=== PATIENT | male | born 1975 | race African-American/Black ===

== ENCOUNTER 2024-09-15 08:56 | Emergency (ER) | payer OTHER ==
[2024-09-15 09:06] VITALS: BP 113/70; PULSE 52; RESP 17; TEMP 98.1; BMI 21.2
[2024-09-15] MEDS ORDERED: DEXAMETHASONE SOD PHOSPHATE 10 MG/1 ML VIAL ONE (09:39)
[2024-09-15] MEDS: DEXAMETHASONE SOD PHOSPHATE 10 MG/1 ML VIAL PO ONE (09:42)
== END 2024-09-15 10:41 | disposition home or self-care (01) ==
LOC: JERFT 08:56
DX: J02.9 Acute pharyngitis, unspecified (principal); K11.20 Sialoadenitis, unspecified; M54.2 Cervicalgia
CPT/HCPCS: 87651; 99283-25; J1100